=== PATIENT | female | born 2005 | race Caucasian/White ===

== ENCOUNTER 2025-08-07 18:42 | Emergency (ER) | payer SELFPAY ==
[~2025-08-07] VITALS: Ht 157.5 cm; Wt 82.0 kg
[2025-08-07 18:43] VITALS: O2SAT 99
[2025-08-07 19:18] VITALS: BP 114/82; PULSE 89; RESP 14; TEMP 36.5; O2SAT 100
== END 2025-08-07 23:02 | disposition left against medical advice (07) ==
LOC: ER 18:42
DX: S81.011A Laceration without foreign body, right knee, initial encounter (principal); X58.XXXA Exposure to other specified factors, initial encounter; Y93.89 Activity, other specified; Y92.89 Other specified places as the place of occurrence of the external cause; Y99.8 Other external cause status
CPT/HCPCS: 99281